=== PATIENT | female | born 1955 | race Native Hawaiian/Other Pacific Islander ===

== ENCOUNTER 2019-10-18 09:12 | Outpatient (CLI) | payer OTHER | END 2019-10-18 19:51 | disposition home or self-care (01) | LOC: NM 09:12 | DX: M89.8X8 Other specified disorders of bone, other site (principal); M25.571 Pain in right ankle and joints of right foot; M25.561 Pain in right knee | CPT/HCPCS: A9561 ==

== ENCOUNTER 2020-05-24 20:16 | Emergency (ER) | payer OTHER ==
[~2020-05-24] VITALS: Ht 157.5 cm; Wt 68.0 kg
[2020-05-24 21:26] LABS: POTASSIUM 3.8 mmol/L (3.6-5.2)
[2020-05-24 21:34] LABS: PARTIAL THROMBOPLASTIN TIME 30.1 SECONDS (24.5-33.6)
[2020-05-24 21:38] LABS: PLATELET COUNT 144 K/uL (152-353)
[2020-05-24 22:00] VITALS: BP 151/65
== END 2020-05-24 22:00 | disposition home or self-care (01) ==
LOC: ED 20:16
PROVIDERS: Hospitalist
DX: S09.8XXA Other specified injuries of head, initial encounter (principal); S06.0X0A Concussion without loss of consciousness, initial encounter; N39.0 Urinary tract infection, site not specified; W18.39XA Other fall on same level, initial encounter; Y92.89 Other specified places as the place of occurrence of the external cause
CPT/HCPCS: 36415; 80048; 81000; 85027; 85610; 85730; 93005; 96374; 99283; J1885; J2405

== ENCOUNTER 2020-07-13 14:03 | Emergency (ER) | payer OTHER ==
[~2020-07-13] VITALS: Ht 157.5 cm; Wt 68.0 kg
[2020-07-13 15:04] LABS: PLATELET COUNT 261 K/uL (152-353)
[2020-07-13 15:32] LABS: PARTIAL THROMBOPLASTIN TIME 53.9 SECONDS (24.5-33.6)
[2020-07-13 20:22] VITALS: BP 110/47; TEMP 98.2
== END 2020-07-13 20:22 | disposition short-term general hospital (02) ==
LOC: ED 14:03
PROVIDERS: Hospitalist
PROC: 0T9B70Z Drainage of Bladder with Drainage Device, Via Natural or Artificial Opening (ICD-10-PCS; principal; 2020-07-13)
DX: T81.49XA Infection following a procedure, other surgical site, initial encounter (principal); R50.9 Fever, unspecified; R10.84 Generalized abdominal pain; Z03.818 Encounter for observation for suspected exposure to other biological agents ruled out
CPT/HCPCS: 51702; 80053; 81000; 82150; 83605; 83690; 85027; 85610; 85730; 87040; 87070; 87077; 87186; 87205; 87635; 96360; 96361; 96365; 96375; 96376; 99284; J2270; J2405; J2543; J3430; Q9963; U0003

== ENCOUNTER 2020-08-17 16:34 | Emergency (ER) | payer OTHER ==
[~2020-08-17] VITALS: Ht 157.5 cm; Wt 68.0 kg
[2020-08-17 17:50] LABS: PLATELET COUNT 243 K/uL (152-353)
[2020-08-17 17:54] LABS: POTASSIUM 3.3 mmol/L (3.6-5.2)
[2020-08-17 18:59] VITALS: BP 117/52; TEMP 97.8
== END 2020-08-17 18:59 | disposition home or self-care (01) ==
LOC: ED 16:34
PROVIDERS: Hospitalist
DX: J06.9 Acute upper respiratory infection, unspecified (principal); J40 Bronchitis, not specified as acute or chronic; Z20.828 Contact with and (suspected) exposure to other viral communicable diseases; Z98.890 Other specified postprocedural states
CPT/HCPCS: 80053; 85027; 87502; 87635; 87651; 96365; 96375; 99284; J0696; J1940; U0003